=== PATIENT | female | born 1960 | race Caucasian/White ===

== ENCOUNTER → 2016-09-22 | Outpatient (CLI) | payer BC ==
--- NOTE | 2016-09-22 13:19 | KCIC ---
PROCEDURE Bilateral digital screening mammogram. HISTORY 56-year-old female presents for screening mammography. TECHNIQUE Full field digital craniocaudal and mediolateral oblique views of both breasts were obtained. Computer-aided detection is applied. COMPARISON 10/27/2014 FINDINGS Breast parenchymal composition: Level C - Heterogeneously dense. There are focal asymmetries within the posterior slightly inferior left breast on the mediolateral oblique projection and within the anterior lateral right breast on the craniocaudal projection. These are likely due to summation artifact and differences in patient positioning compared to the prior study. There is no architectural distortion or suspicious calcification IMPRESSION BI-RADS Category 0: Needs additional imaging. Further evaluation with full field digital true lateral views and a spot compression craniocaudal view and spot compression mediolateral oblique view of the left breast is recommended. The patient will be contacted to return for additional imaging. This study was interpreted with the benefit of Computerized Aided Detection (CAD). Mammography is not 100% sensitive in detecting breast cancer. Therefore, a self breast exam and a clinical breast exam are very important. A negative mammogram does not negate a clinically suspicious finding and should not result in a delay in biopsying a clinically suspicious abnormality. Electronically signed by: Renee Carlson (September 22, 2016 13:17:30)
== END | disposition home or self-care (01) ==
LOC: KCIC MAMMO 12:17
PROVIDERS: ATTEND Obstetrics & Gynecology
DX: Z12.31 Encounter for screening mammogram for malignant neoplasm of breast (principal)
CPT/HCPCS: G0202; 77067